=== PATIENT | female | born 1975 ===

== ENCOUNTER 2017-04-15 19:44 | Emergency (ER) | payer MEDICAID ==
[2017-04-15 19:58] VITALS: RESP 16; TEMP 98; BMI 27.4
[2017-04-15] MEDS ORDERED: Oxycodone/Acetaminophen 5/325 mg Tab PO STA (20:24)
--- NOTE | 2017-04-15 22:11 | ED PDOC ---
Arrival/HPI - General Chief Complaint: Hip Pain Time Seen by Provider: 04/15/17 20:05 Historian: Patient - History of Present Illness Narrative History of Present Illness (Text): 04/15/17 22:08 Patient with past medical history of chronic back pain and sciatica, reports worsening atraumtic pain in the left hip, which started 3 days ago after cleaning her house and moving furniture and has become worse this morning, worse with movement, states unable to put weight on affected leg. Patient states that she also has pain in her left lower back radiating into the left hip however most of the pain is localized in the left hip. Patient reports taking extra strength Tylenol with no relief Otherwise: (-) paresthesias, (-) weakness, (-) acute bowel or bladder dysfunction, (-) fever / recent illness, ( -) rash, (-) abdominal pain, (-) urinary symptoms. PMD Jeffery Past Medical History - Provider Review Nursing Documentation Reviewed: Yes - Psychiatric Hx Substance Use: No Family/Social History - Physician Review Nursing Documentation Reviewed: Yes Family/Social History: No Known Family HX Smoking Status: Current Some Days Smoker Hx Alcohol Use: Yes Frequency of alcohol use: Socially Hx Substance Use: No Allergies/Home Meds Allergies/Adverse Reactions: Allergies No Known Allergies Allergy (Verified 04/15/17 19:58) Review of Systems - Review of Systems Constitutional: Normal. absent: Fatigue, Weight Change, Fevers Respiratory: Normal. absent: SOB, Cough, Sputum Cardiovascular: Normal. absent: Chest Pain, Palpitations, Edema Gastrointestinal: Normal. absent: Abdominal Pain, Stool Changes, Appetite Changes Musculoskeletal: Normal, Back Pain (chronic back pain, sciatica). absent: Arthralgias, Neck Pain Skin: Normal. absent: Rash, Pruritis, Skin Lesions Physical Exam - Physical Exam Narrative Physical Exam (Text): 04/15/17 22:15 GENERAL APPEARANCE: Patient is awake, alert, oriented x 3, in moderate painful distress. SKIN: Warm, dry; (-) cyanosis. EYES: (-) conjunctival pallor. ENMT: Mucous membranes moist. NECK: (-) tenderness, (-) stiffness, (-) lymphadenopathy. CHEST AND RESPIRATORY: (-) rales, (-) rhonchi, (-) wheezes; breath sounds equal bilaterally. HEART AND CARDIOVASCULAR: (-) irregularity; (-) murmur, (-) gallop. ABDOMEN AND GI: Soft; (-) tenderness; (-) palpable mass. BACK: (+) mild paralumbar area, (+) mild spasm, (-) direct bony tenderness, (- ) deformity. Straight leg raising unable to test. EXTREMITIES: L hip is held in flexion and unable to extend at this time, (+) tenderness to the L hip, (+) limited ROM of the L hip secondary to pain, (-) deformity. Rest of the extremities non-tender with FROM. Distal pulses good bilaterally. NEURO AND PSYCH: Mental status as above. Intact sensation bilaterally; normal strength in extension of the knees, plantar and dorsiflexion of the toes. DTRs symmetric. Vital Signs Temp Pulse Resp BP Pulse Ox 04/16/17 01:09 16 100/50 L 97 04/15/17 22:38 73 16 93/56 L 97 04/15/17 19:55 98.0 F 96 H 16 110/70 98 Medical Decision Making ED Course and Treatment: 04/15/17 22:17 41 yo F w/ pmh of sciatica and chronic low back pain, c/o 3 day h/o L hip pain. Patient noted to have L hip pain, consider sciatica vs muscle spasm/inguinal strain. Plan: - XR L hip - Percocet / naprosyn / flexeril 04/16/17 23:30 XR L hip: no fracture, no dislocation, as read by PA Patient advised that official radiology read of XR is still pending and will call the patient if there is any discrepancy within 24 hours. On reevaluation, patient reports significant improvement of pain. Patient is laying in bed comfortably in no acute distress. On exam patient is noted to have full range of motion of left hip. Based on history, exam and diagnostic results plan will be for outpatient follow -up. Prescription provided. Patient states she fully agrees with and understands discharge instructions. States that she agrees with the plan and disposition. Verbalized and repeated discharge instructions and plan. I have given the patient opportunity to ask any additional questions. Follow up with primary care physician in 1-2 days without fail. Advised to take medication as prescribed. Return to the emergency room at any time for any new or worsening symptoms. - RAD Interpretation Radiology Orders: 04/15/17 20:24 HIP MIN 2V W/ PELVIS LT [RAD] Stat - Medication Orders Current Medication Orders: Discontinued Medications Cyclobenzaprine HCl (Flexeril) 10 mg PO STAT STA Stop: 04/15/17 20:25 Last Admin: 04/15/17 20:39 Dose: 10 mg Ketorolac Tromethamine (Toradol) 60 mg IM STAT STA Stop: 04/15/17 20:25 Last Admin: 04/15/17 20:39 Dose: 60 mg Oxycodone/Acetaminophen (Percocet 5/325 Mg Tab) 1 tab PO STAT STA Stop: 04/15/17 20:25 Last Admin: 04/15/17 20:39 Dose: 1 tab - PA / DEBATE DIRECTOR / Resident Statement / has reviewed & agrees with the documentation as recorded. Disposition/Present on Arrival - Present on Arrival Any Indicators Present on Arrival: No History of DVT/PE: No History of Uncontrolled Diabetes: No Urinary Catheter: No History of Decub. Ulcer: No History Surgical Site Infection Following: None - Disposition Have Diagnosis and Disposition been Completed?: Yes Diagnosis: Hip pain, left, Sciatica Disposition: HOME/ ROUTINE Disposition Time: 00:00 Patient Plan: Discharge Condition: GOOD Discharge Instructions (ExitCare): Sciatica (ED), Hip Pain (ED) Print Language: EQUATORIAL GUINEAN Additional Instructions: Thank you for letting us take care of you today. You were treated for left hip pain, sciatica. The emergency medical care you received today was directed at your acute symptoms. If you were prescribed any medication, please fill it and take as directed. It may take several days for your symptoms to resolve. Return to the Emergency Department if your symptoms worsen, do not improve, or if you have any other problems. Please contact your doctor in 2 days for re-evaluation and follow up. Bring any paperwork you were given at discharge with you along with any medications you are taking to your follow up visit. Our treatment cannot replace ongoing medical care by a primary care provider (PCP) outside of the emergency department. Thank you for allowing the [facility] team to be part of your care today. Prescriptions: Cyclobenzaprine [Cyclobenzaprine HCl] 10 mg PO TID PRN #15 tab PRN Reason: Muscle Spasm Naproxen 500 mg PO BID #30 tab oxyCODONE/Acetaminophen [Percocet 5/325 mg Tab] 1 ea PO TID #12 tab Referrals: Kavon Gil MD [Primary Care Provider] - Follow up with primary Forms: WORK NOTE
[2017-04-15 22:39] VITALS: PULSE 73; O2SAT 97
[2017-04-16 01:10] VITALS: BP 100/50
--- NOTE | 2017-04-16 08:47 | RAD ---
PROCEDURE: Pelvis and left hip HISTORY: pain COMPARISON: TECHNIQUE: Three views FINDINGS: There is no evidence of fracture or joint space narrowing. There is some bony sclerosis in the right proximal femur. This has a benign appearance and is of doubtful significance IMPRESSION: No acute findings
== END 2017-04-16 01:10 | disposition home or self-care (01) ==
LOC: ED 19:44 → MERGE 19:44 → ED 04-16 01:10
DX: M25.552 Pain in left hip (principal); M54.30 Sciatica, unspecified side
CPT/HCPCS: 73502; 96372; 99284; J1885

== ENCOUNTER 2017-07-11 02:12 | Observation (INO) | payer MEDICAID ==
[2017-07-11 02:16] VITALS: BMI 27.6
[2017-07-11 02:35] VITALS: TEMP 98
--- NOTE | 2017-07-11 04:38 | ED PDOC ---
Arrival/HPI <ROBINSON ENGLE - Last Filed: 07/11/17 06:19> <Deojn Faulkner - Last Filed: 07/11/17 06:48> <Raymond Lancaster - Last Filed: 07/11/17 12:00> - General Chief Complaint: Alcohol Ingestion Time Seen by Provider: 07/11/17 02:15 - History of Present Illness Narrative History of Present Illness (Text): Patient is a 41 year old female found in the street intoxicated by policemen. Patient was uncooperative and therefore brought to the Emergency department with the person she was with who was also under the influence. Patient was uncooperative with exam, stating she needed to back home to see her soon who is 14 and autistic. 07/11/17 06:19 (ROBINSON ENGLE) Past Medical History - Provider Review Nursing Documentation Reviewed: Yes <RBOINSON ENGLE - Last Filed: 07/11/17 06:19> - Psychiatric Hx Substance Use: No - Suicidal Assessment Feels Threatened In Home Enviroment: No <Dejon Faulkner - Last Filed: 07/11/17 06:48> Family/Social History - Physician Review Nursing Documentation Reviewed: Yes Family/Social History: Other Smoking Status: Current Some Days Smoker Hx Alcohol Use: No Frequency of alcohol use: Daily Hx Substance Use: No <ROBINSON ENGLE - Last Filed: 07/11/17 06:19> Smoking Status: Current Some Days Smoker Hx Alcohol Use: Yes Frequency of alcohol use: Daily Hx Substance Use: No <Dejon Faulkner - Last Filed: 07/11/17 06:48> <Raymond Lancaster - Last Filed: 07/11/17 12:00> Narrative Family History (Free Text): non contributory 07/11/17 06:31 (ROBINSON ENGLE) Allergies/Home Meds <ROBINSON ENGLE - Last Filed: 07/11/17 06:19> <Dejon Faulkner - Last Filed: 07/11/17 06:48> <Raymond Lancaster - Last Filed: 07/11/17 12:00> Allergies/Adverse Reactions: Allergies amoxicillin [From Amoxil] Allergy (Verified 07/11/17 02:18) RASH buspirone [From BuSpar] Allergy (Verified 07/11/17 02:18) RASH Penicillins Allergy (Verified 07/11/17 02:18) RASH Home Medications: Home Meds Medication Instructions Recorded Confirmed No Known Home Med [No Known Home 10/04/13 10/04/13 Med] Review of Systems - Physician Review All systems were reviewed & negative as marked: Yes - Review of Systems Systems not reviewed;Unavailable: Intoxicated <ROBINSON ENGLE - Last Filed: 07/11/17 06:19> Physical Exam - Physical Exam Physical Exam Limitations: Intoxication, Uncooperative Vital Signs Reviewed: Yes Temperature: Afebrile Blood Pressure: Normal Pulse: Regular Respiratory Rate: Normal Appearance: Positive for: Non-Toxic Mental Status: Positive for: Alert and Oriented X 3 - Systems Exam Head: Present: Atraumatic, Normocephalic <ROBINSON ENGLE - Last Filed: 07/11/17 06:19> Finger Stick Blood Glucose: 73 <Dejon Faulkner - Last Filed: 07/11/17 06:48> Medical Decision Making <ROBINSON ENGLE - Last Filed: 07/11/17 06:19> <Dejon Faulkner - Last Filed: 07/11/17 06:48> <Raymond Lancaster - Last Filed: 07/11/17 12:00> ED Course and Treatment: Assessment 41 year old female with alcohol intoxication Plan Sign out pending child protective services 07/11/17 06:28 (ROBINSON ENGLE) Seen and examined with resident. Patient BIBEMS with alcohol intoxication. Alcohol on breath. (Dejon Faulkner) 07/11/17 07:24 Patient was turned over to la by , waiting for her to sober up. She required chemical restraints during the night. She is currently lethargic and nonverbal and unable to give any history. Workup for altered mental status has been begun. Her exam is nonfocal. 07/11/17 08:47 EKG shows normal sinus rhythm rate approximately [address] or T-wave changes. Workup is positive for PCP and alcohol. Patient is still lethargic but easily aroused. She is not yet ready for discharge. Still unclear if the patient will need a crisis evaluation. 07/11/17 11:59 Patient is up walking to the bathroom. She denies suicidal or homicidal ideation. Denies depression. She will be discharged home accompanied by family. Follow-up with PMD. Follow up in ER as needed. (Raymond Lancaster) - Lab Interpretations Lab Results: Lab Results 07/11/17 03:45: POC Glucose (mg/dL) 73 - Medication Orders Current Medication Orders: Discontinued Medications Haloperidol Lactate (Haldol) 2 mg IM STAT STA PRN Reason: Protocol Stop: 07/11/17 02:51 Last Admin: 07/11/17 03:01 Dose: 2 mg Lorazepam (Ativan) 2 mg IM ONCE ONE PRN Reason: Protocol Stop: 07/11/17 02:50 Last Admin: 07/11/17 03:00 Dose: 2 mg ED OBSERVATION <ROBINSON ENGLE - Last Filed: 07/11/17 06:19> Date of observation admission: 07/11/17 Time of observation admission: 02:51 <Dejon Faulkner - Last Filed: 07/11/17 06:48> <Raymond Lancaster - Last Filed: 07/11/17 12:00> - Observation admission statement Patient is being placed in observation because:: intoxication (Dejon Faulkner) - Goals of Observation Goals of observation are:: sobriety (Dejon Faulkner) - Progress Note Progress Note: 251 Sedation medications ordered. 0451 Sleeping. 0650 Sleeping. Will sign out to ED day team pending sobriety and evaluation by child protective services once sober. (Dejon Faulkner) Disposition/Present on Arrival - Present on Arrival Any Indicators Present on Arrival: No - Disposition Have Diagnosis and Disposition been Completed?: No Disposition Time: 06:31 Patient Plan: Observation <ROBINSON ENGLE - Last Filed: 07/11/17 06:19> - Present on Arrival History of DVT/PE: No History of Uncontrolled Diabetes: No Urinary Catheter: No History of Decub. Ulcer: No History Surgical Site Infection Following: None <Dejon Faulkner - Last Filed: 07/11/17 06:48> - Present on Arrival Any Indicators Present on Arrival: No History of DVT/PE: No History of Uncontrolled Diabetes: No Urinary Catheter: No History of Decub. Ulcer: No - Disposition Have Diagnosis and Disposition been Completed?: Yes Disposition Time: 12:00 Patient Plan: Discharge <Raymond Lancaster - Last Filed: 07/11/17 12:00> - Disposition Diagnosis: Alcohol abuse, Substance abuse Disposition: HOME/ ROUTINE Patient Problems: Current Active Problems Problem Status Onset Alcohol abuse Acute Condition: IMPROVED
[2017-07-11 07:40] VITALS: RESP 16
[2017-07-11 07:51] LABS: BASO # 0.03 K/mm3 (0.0-2.0); BASO % 0.2 % (0.0-3.0); EOS # 0.8 (0.0-0.7); EOS % 6.5 % (1.5-5.0); GRAN # 7.18 (1.4-6.5); GRAN % 59.2 % (50.0-68.0); HEMATOCRIT 37.3 % (36.0-48.0); LYMPH # 3.2 (1.2-3.4); LYMPH % 26.4 % (22.0-35.0); MEAN CELL VOLUME 96.9 fl (80.0-105.0); MEAN PLATELET VOLUME 9.3 fl (7.0-11.0); MONO # 0.9 (0.1-0.6); MONO % 7.7 % (1.0-6.0); RED CELL DISTRIBUTION WIDTH 13.2 % (11.5-14.5); WHITE BLOOD COUNT 12.1 10^3/ul (4.5-11.0)
[2017-07-11 07:52] LABS: URINE APPEARANCE CLEAR (CLEAR); URINE BILIRUBIN NEGATIVE (NEGATIVE); URINE BLOOD TRACE-INTACT (NEGATIVE); URINE COLOR STRAW (YELLOW); URINE GLUCOSE (UA) NEGATIVE (NEGATIVE); URINE KETONE NEGATIVE (NEGATIVE); URINE LEUKOCYTE ESTERASE NEGATIVE Leu/uL (NEGATIVE); URINE PROTEIN NEGATIVE mg/dL (<30 mg/dL); URINE UROBILINOGEN 0.2 E.U./dL (<1 E.U./dL)
[2017-07-11 08:02] LABS: INR 0.98 (0.93-1.08); PARTIAL THROMBOPLASTIN TIME 28.6 Seconds (23.7-30.8)
[2017-07-11 08:09] LABS: URINE BACTERIA TRACE (NEG); URINE EPITHELIAL CELLS 0 - 2 /hpf (0-5); URINE RBC 0 - 2 /hpf (0-2); URINE WBC NEGATIVE /hpf (0-6)
[2017-07-11 08:12] LABS: ALB/GLOB RATIO 1.5 (1.1-1.8); ALKALINE PHOSPHATASE 63 U/L (38-126); ALT/SGPT 46 U/L (7-56); AST/SGOT 43 U/L (14-36); BILIRUBIN,TOTAL 0.3 mg/dL (0.2-1.3); BLOOD UREA NITROGEN 13 mg/dL (7-21); CALCIUM 8.9 mg/dL (8.4-10.5); CARBON DIOXIDE 23 mmol/L (21-33); CHLORIDE 108 mmol/L (98-107); GFR AFRICAN-AMERICAN > 60; GLUCOSE,RANDOM 74 mg/dL (70-110); MAGNESIUM 2.1 mg/dL (1.7-2.2); PHOSPHOROUS 4.6 mg/dL (2.5-4.5); POTASSIUM 3.6 mmol/L (3.6-5.0); SODIUM 144 mmol/L (132-148)
[2017-07-11 08:23] LABS: TROPONIN I < 0.01 ng/mL
[2017-07-11 10:03] VITALS: O2SAT 100
[2017-07-11 11:56] VITALS: BP 106/41; PULSE 75
--- NOTE | 2017-07-12 01:58 | CARD ---
APPROVED REPORT EKG Measurement Heart [id number] <Conclusion> Normal sinus rhythm Normal ECG
== END 2017-07-11 13:08 | disposition home or self-care (01) ==
LOC: ED 02:12 → EROBSV 06:48
PROVIDERS: ADMIT Student in an Organized Health Care Education/Training Program; ATTEND Student in an Organized Health Care Education/Training Program
DX: F10.10 Alcohol abuse, uncomplicated (principal); F19.10 Other psychoactive substance abuse, uncomplicated
CPT/HCPCS: 36415; 80053; 80320; 80324; 80329; 80345; 80346; 80349; 80353; 80358; 80361; 81001; 82550; 82553; 82948; 83615; 83735; 83992; 84100; 84484; 85025; 85610; 85730; 93005; 96372; 99285; G0378; J1630; J2060